=== PATIENT | male | born 2000 | race Caucasian/White ===

== ENCOUNTER 2021-07-10 09:45 | Outpatient (CLI) | payer BC, SELFPAY ==
[2021-07-10 12:07] LABS: Internal QC Validated? YES +Cl - CLEAR BKGD; Monotest Negative (Negative)
== END 2021-07-10 23:59 | disposition home or self-care (01) ==
PROVIDERS: PCP Pediatrics; Referring Provider Otolaryngology; Visit Provider Otolaryngology
DX: R53.82 Chronic fatigue, unspecified (principal)
CPT/HCPCS: 36415; 86308